=== PATIENT | female | born 1995 | race Caucasian/White ===

== ENCOUNTER 2023-02-14 16:07 | Emergency (ER) | payer BC, SELFPAY ==
--- NOTE | ~2023-02-14 | XR_ITS ---
EXAM: XR foot RT min 3V DATE: 02/14/2023 16:24 HISTORY: lateral right foot pain x 1 week. NO INJURY . COMPARISON: None. FINDINGS: Normal mineralization. No fracture or dislocation. No lytic or blastic lesion. Joint space s are maintained. No erosion or periosteal change. Soft tissues within normal limits. IMPRESSION: No acute osseous finding in the right foot. Reviewed, dictated and finalized at location K.
[2023-02-14 16:17] VITALS: BP 113/92; PULSE 85; RESP 16; TEMP 37.1; O2SAT 100
--- NOTE | 2023-02-14 16:31 | ED.LOWEXIN ---
HPI - Extremity Injury (Lower) General Chief Complaint: Extremity Injury, Lower Stated Complaint: rt foot injury Source: patient Mode of arrival: ambulatory Limitations: no limitations History of Present Illness HPI Narrative: 27 y/o female presented for c/o right foot pain for one week. Denies known injury, however she states the pain started after a week long motorcycle class. Denies bruising, redness, or swelling. Taking occasional ibuprofen for pain. States pain is worse with certain movements, mostly with inversion of the foot. Related Data Home Medications Medication Instructions Recorded Confirmed atomoxetine 25 mg capsule 25 mg PO DAILY 02/14/23 02/14/23 paroxetine HCl 10 mg tablet 10 mg PO DAILY 02/14/23 02/14/23 Allergies Allergy/AdvReac Type Severity Reaction Status Date / Time No Known Allergies Allergy Unverified 02/14/23 16:26 Review of Systems Review of Systems: CONSTITUTIONAL: Denies body aches, fever, chills EYES: Denies visual changes ENT: Denies rhinorrhea, congestion CARDIOVASCULAR: Denies chest pain, palpitations, or edema. RESPIRATORY: Denies cough or dyspnea. SKIN: Denies rash, itching, or wounds. MUSCULOSKELETAL: per HPI NEUROLOGIC: Denies headache, numbness, tingling, or weakness. All systems reviewed & are unremarkable except as noted in HPI and below PMFSH Past Medical History Medical History (Updated 02/14/23 @ 16:40 by Ludivina Davison, AMISH) No pertinent past medical history Comments At time of signature, I have reviewed and agree with nursing past medical, surgical, social and family history unless otherwise noted. Please see nursing chart for further information. There is no relevant family history pertinent to the presenting complaint Exam Narrative: GENERAL: Well-appearing CHEST: Speaks in full sentences. No respiratory distress. HEART: Regular rate and rhythm. Normal and equal peripheral pulses. EXTREMITIES: Right foot has normal strength and sensation, normal range of motion; endorses pain with inversion of the foot. No swelling or ecchymosis, No point tenderness. No open wounds or obvious deformity; alignment normal, pulse palpable and equal bilaterally, skin warm, dry, pink. Capillary refill less than 3 seconds. SKIN: Warm, dry, no rash. NEURO: Alert and oriented x3. PSYCH: Normal mood and affect Course Course Emergency Course: Patient is aware of diagnosis, understands and agrees to treatment plan. Anticipatory guidance given. Patient agrees to follow-up as directed and is aware of reasons to seek care at the emergency department. Portions of this record may have been created with voice recognition software Level of Care: Express Care Visit Vital Signs Vital signs: Vital Signs Temperature 98.8 F 02/14/23 16:17 Pulse Rate 85 02/14/23 16:17 Respiratory Rate 16 02/14/23 16:17 Blood Pressure 113/92 H 02/14/23 16:17 Pulse Oximetry 100 02/14/23 16:17 Oxygen Delivery Room Air 02/14/23 16:17 Temperature 98.8 F 02/14/23 16:17 Pulse Rate 85 02/14/23 16:17 Respiratory Rate 16 02/14/23 16:17 Blood Pressure 113/92 H 02/14/23 16:17 Pulse Oximetry 100 02/14/23 16:17 Oxygen Delivery Room Air 02/14/23 16:17 Reviewed MDM - Extremity Injury (Lower) MDM Narrative Medical decision making narrative: Results of x-ray reviewed with patient. MISHEL applied. Patient declined postop shoe. discussed physical exam findings. Advised supportive measures and signs/symptoms to go to the ER. Pt is appropriate for outpt treatment and f/u. Differential Diagnosis Differential diagnosis: Likely ankle sprain and strain and other (foot sprain/strain, contusion, fracture) Imaging Data Radiologist's impression: Patient: Keisha Aburto : 1995 MR#: [id number] Age/Sex: 27 / F Acct:[id number] Loc: [facility]? ? ADM Date: 02/14/23Attending Dr: Ordering Physician: Ludivina Davison APRN Date of Service: 02/14/23 Proced
== END 2023-02-14 16:41 | disposition home or self-care (01) ==
PROVIDERS: Emergency Provider Nurse Practitioner Family; PCP Internal Medicine
DX: M79.671 Pain in right foot (principal)
CPT/HCPCS: 73630; 99203; G0463